=== PATIENT | female | born 1980 | race Caucasian/White ===

== ENCOUNTER 2021-12-01 18:51 | Emergency (ER) | payer SELFPAY ==
[2021-12-01] MEDS ORDERED: Cephalexin 250 MG CAP ONE (19:17)
[2021-12-01] MEDS ORDERED: traMADol HCl 50 MG TAB ONE ×2 (19:17)
== END 2021-12-01 19:38 | disposition home or self-care (01) ==
LOC: MADERS 18:51
DX: K04.7 Periapical abscess without sinus (principal); F17.200 Nicotine dependence, unspecified, uncomplicated; K03.81 Cracked tooth
CPT/HCPCS: 99282

== ENCOUNTER 2022-07-25 12:05 | Emergency (ER) | payer SELFPAY | END 2022-07-25 12:57 | disposition home or self-care (01) | LOC: MADERS 12:05 | DX: G58.9 Mononeuropathy, unspecified (principal); F17.200 Nicotine dependence, unspecified, uncomplicated | CPT/HCPCS: 99283 ==

== ENCOUNTER 2024-02-18 10:40 | Emergency (ER) | payer OTHER, SELFPAY ==
[2024-02-18] MEDS ORDERED: Ketorolac Tromethamine 60 MG/2 ML VIAL ONE (11:03)
[2024-02-18 11:14] LABS: Bilirubin Negative (Negative); Blood, Urine Trace (Negative); Glucose, Urine (Dipstick) Negative (Negative); Ketone, Urine Negative (Negative); Leukocyte Negative (Negative); Nitrite Negative (Negative); Protein, Urine (Dipstick) Negative (Neg-Trace); Specific Gravity, Urine 1.025 (1.005-1.030); Urobilinogen 0.2 mg/dL (Less than 2); pH, Urine 6.5 (5.0-9.0)
[2024-02-18 11:23] LABS: Clarity Hazy (Clear)
[2024-02-18 11:24] LABS: CAUTI Indications for Culture Pelvic or flank pain; RBC/HPF 0-3 HPF (0-3); WBC/HPF 0-3 HPF (0-3)
[2024-02-18 11:25] LABS: Bacteria/HPF Rare-Few HPF (None Seen); Mucous/LPF Few LPF (<2+); Urine Culture Reflex No No
[2024-02-18 11:43] LABS: #Basophils 0.2 thou/uL (0.0-0.2); #Eosinphils 0.3 thou/uL (0.0-0.7); #Lymphocytes 2.6 thou/uL (1.20-3.40); #Monocytes 0.7 thou/uL (0.11-0.59); #Neutrophils 4.7 thou/uL (1.40-6.50); %Basophils 1.8 % (0.0-1.0); %Eosinophils 3.3 % (0.0-10.0); %Lymphocytes 30.8 % (21.0-51.0); %Monocytes 8.6 % (0.0-10.0); %Neutrophils 55.5 % (42.0-75.0); Hematocrit 47.1 % (36.0-47.0); Hemoglobin 14.4 g/dL (12.0-16.0); Mean Corpuscular HGB CONC 30.6 g/dL (32.0-36.0); Mean Corpuscular Volume 98.2 fl (78.0-98.0); Mean Platelet Volume 6.6 fL (7.4-10.4); Platelet Count 466 10x3/uL (130-400); RBC Distribution Width 12.7 % (11.5-14.5); White Blood Cell (WBC) Count 8.5 10x3/uL (4.8-10.8)
[2024-02-18 12:00] LABS: ALT (SGPT) 63 U/L (8-55); AST (SGOT) 41 U/L (5-34); Albumin 3.6 g/dL (3.5-5.0); Alkaline Phosphatase 55 U/L (40-110); Anion Gap 12 mmol/L (10-20); BUN (Urea Nitrogen) 8 mg/dL (7.0-18.7); Bilirubin, Total 0.5 mg/dL (0.2-1.2); Calc. Creatinine Clearance 0 mL/min (70-130); Calcium 8.8 mg/dL (7.8-10.44); Carbon Dioxide 20 mmol/L (22-29); Chloride 111 mmol/L (98-107); Estimated GFR 111; Globulin 2.9 g/dL (2.4-3.5); Glucose 102 mg/dL (70-105); Potassium 4.2 mmol/L (3.5-5.1); Protein, Total 6.5 g/dL (6.0-8.3); Sodium 139 mmol/L (136-145)
[2024-02-18] MEDS ORDERED: Morphine 10 MG/ML VIAL ONE (12:12)
[2024-02-18 12:29] LABS: Pregnancy Test - Urine (BHCG) Negative (Negative); Pregu Control Bar Appear? YES (CONTROL BAR); Specific Gravity 1.025 (1.002-1.036)
[2024-02-18 12:30] LABS: Pregu Control Background? CLEAR/WHITE (CLR/WHITE)
== END 2024-02-18 13:09 | disposition home or self-care (01) ==
LOC: MADERS 10:40
DX: M54.50 Low back pain, unspecified (principal); F17.210 Nicotine dependence, cigarettes, uncomplicated
CPT/HCPCS: 36415; 74176; 80053; 81001; 81025; 85025; 96372; J1885; J2270